=== PATIENT | male | born 1970 | race Caucasian/White ===

== ENCOUNTER 2019-11-10 16:04 | Inpatient (IN) | payer MEDICAID ==
[~2019-11-10] VITALS: Ht 170.2 cm; Wt 119.7 kg
[2019-11-10 16:06] VITALS: Ht 170.2 cm; Wt 119.7 kg
[2019-11-10 16:56] LABS: BASOPHIL % 0.3 % (0-2)
[2019-11-10 16:57] LABS: PLATELET COUNT 118 x10^3mcL (130-400); RED CELL DISTRIBUTION WIDTH 14.7 % (11.5-14.5)
[2019-11-10 17:15] LABS: ALBUMIN 3.5 g/dL (3.4-5.0); ALKALINE PHOSPHATASE 108 U/L (46-116); AST/SGOT 202 U/L (15-37); CALCIUM 9.7 mg/dL (8.5-10.1); CARBON DIOXIDE 21.4 mmol/L (21-32); CHLORIDE SERUM 91 mmol/L (98-107); CREATININE SERUM 2.5 mg/dL (0.7-1.3); GFR1 29 mL/min; GLUCOSE SERUM 120 mg/dL (74-106); MAGNESIUM 2.5 mg/dL (1.8-2.4); SODIUM SERUM 134 mmol/L (136-145); TOTAL PROTEIN, SERUM 7.4 g/dL (6.4-8.2)
[2019-11-10 18:11] LABS: ALT/SGPT 182 U/L (16-63)
[2019-11-10 19:24] LABS: CALCIUM 8.9 mg/dL (8.5-10.1); CARBON DIOXIDE 30.1 mmol/L (21-32); CREATININE SERUM 1.9 mg/dL (0.7-1.3)
[2019-11-10 19:29] LABS: POTASSIUM SERUM 2.8 mmol/L (3.5-5.1)
[2019-11-10 20:18] LABS: UA SPECIFIC GRAVITY >=1.030 (1.005-1.035); microscopic required? YES; urine erythrocyte 3+ (NEGATIVE)
[2019-11-11] VITALS (7 sets, daily range): BP systolic 115–157; BP diastolic 85–107
[2019-11-11 07:18] LABS: BASOPHIL % 0.4 % (0-2); RED CELL DISTRIBUTION WIDTH 14.5 % (11.5-14.5)
[2019-11-11 07:35] LABS: PLATELET COUNT 96 x10^3mcL (130-400)
[2019-11-11 07:53] LABS: CALCIUM 8.2 mg/dL (8.5-10.1); CARBON DIOXIDE 31.8 mmol/L (21-32); CREATININE SERUM 1.4 mg/dL (0.7-1.3); MAGNESIUM 2.4 mg/dL (1.8-2.4); PHOSPHOROUS 2.6 mg/dL (2.5-4.9)
[2019-11-11 07:55] LABS: POTASSIUM SERUM 2.8 mmol/L (3.5-5.1)
[2019-11-11 10:02] LABS: LIPASE 1161 IU/L (73-393)
[2019-11-11 10:05] LABS: AMYLASE 152 U/L (25-115)
[2019-11-12 05:33] VITALS: BP 127/92
[2019-11-12 07:02] LABS: BASOPHIL % 1.1 % (0-2); PLATELET COUNT 134 x10^3mcL (130-400)
[2019-11-12 07:34] LABS: RED CELL DISTRIBUTION WIDTH 14.8 % (11.5-14.5)
[2019-11-12 07:37] LABS: CALCIUM 7.9 mg/dL (8.5-10.1); CARBON DIOXIDE 27.8 mmol/L (21-32); CHLORIDE SERUM 95 mmol/L (98-107); GFR1 > 60 mL/min; GLUCOSE SERUM 83 mg/dL (74-106); MAGNESIUM 1.8 mg/dL (1.8-2.4); PHOSPHOROUS 2.8 mg/dL (2.5-4.9); SODIUM SERUM 131 mmol/L (136-145)
[2019-11-12 07:40] LABS: POTASSIUM SERUM 2.9 mmol/L (3.5-5.1)
[2019-11-12 08:54] VITALS: BP 143/90
[2019-11-12 10:47] LABS: BILIRUBIN DIRECT 1.24 mg/dL (0.0-0.2); BILIRUBIN TOTAL 1.8 mg/dL (0.20-1.00)
[2019-11-12 11:07] LABS: ALBUMIN 2.6 g/dL (3.4-5.0); TOTAL PROTEIN, SERUM 5.3 g/dL (6.4-8.2)
[2019-11-12 12:08] VITALS: BP 134/91
[2019-11-12 16:44] VITALS: BP 122/90
[2019-11-12 20:56] VITALS: BP 130/92
[2019-11-13 05:51] VITALS: BP 126/90
[2019-11-13 06:23] LABS: PLATELET COUNT 186 x10^3mcL (130-400); RED CELL DISTRIBUTION WIDTH 14.5 % (11.5-14.5)
[2019-11-13 06:40] LABS: CALCIUM 8.2 mg/dL (8.5-10.1); CARBON DIOXIDE 26.8 mmol/L (21-32); CHLORIDE SERUM 97 mmol/L (98-107); GFR1 > 60 mL/min; GLUCOSE SERUM 89 mg/dL (74-106); MAGNESIUM 1.7 mg/dL (1.8-2.4); PHOSPHOROUS 2.9 mg/dL (2.5-4.9); POTASSIUM SERUM 3.2 mmol/L (3.5-5.1); SODIUM SERUM 131 mmol/L (136-145)
[2019-11-13 08:04] VITALS: BP 117/92
[2019-11-13 11:57] VITALS: BP 129/83
[2019-11-13 12:21] LABS: ATYPICAL LYMPH 3 %; BAND NEUTROPHIL 5 % (0-10); SEGMENTED NEUTROPHILS 49 % (37-75)
[2019-11-13 12:22] LABS: METAMYELOCTE 1 % (0-2); MONOCYTE 21 % (0-7); MYELOCYTE 1 % (0-2); PLATELET MORPHOLOGY LARGE PLATELET SEEN; rbc morphology (normal/abnorm) ABNORMAL (NORMAL)
[2019-11-13 16:41] VITALS: BP 115/86
[2019-11-14 06:21] VITALS: BP 123/94
[2019-11-14 08:48] VITALS: BP 118/80
[2019-11-14 12:01] VITALS: BP 132/93
[2019-11-14 12:53] LABS: CALCIUM 8.5 mg/dL (8.5-10.1); CHLORIDE SERUM 100 mmol/L (98-107); CREATININE SERUM 1.1 mg/dL (0.7-1.3); GFR1 > 60 mL/min; GLUCOSE SERUM 94 mg/dL (74-106); POTASSIUM SERUM 4.1 mmol/L (3.5-5.1); SODIUM SERUM 133 mmol/L (136-145)
[2019-11-14 16:11] VITALS: BP 126/73
[2019-11-14 21:15] VITALS: BP 124/80
[2019-11-15 05:44] VITALS: BP 115/79
[2019-11-15 07:48] VITALS: BP 116/81
[2019-11-15 12:03] VITALS: BP 120/73
[2019-11-15 15:52] VITALS: BP 120/73
[2019-11-15 16:09] VITALS: BP 122/74
== END 2019-11-15 19:22 | disposition home or self-care (01) | DRG 775 ==
LOC: EDBD 16:04 → ED 16:04 → IC 20:05 → DU 20:05 → IC 23:27 → DU 11-11 18:20
PROVIDERS: Emergency Medicine; Internal Medicine; Radiology Diagnostic Radiology; ADMIT Student in an Organized Health Care Education/Training Program; ATTEND Student in an Organized Health Care Education/Training Program
DX: F10.239 Alcohol dependence with withdrawal, unspecified (principal); N17.0 Acute kidney failure with tubular necrosis; G92 Toxic encephalopathy; T51.0X4A Toxic effect of ethanol, undetermined, initial encounter; Y90.0 Blood alcohol level of less than 20 mg/100 ml; N39.0 Urinary tract infection, site not specified; E87.1 Hypo-osmolality and hyponatremia; E86.0 Dehydration; E87.6 Hypokalemia; Z20.828 Contact with and (suspected) exposure to other viral communicable diseases; D64.9 Anemia, unspecified; E83.51 Hypocalcemia
CPT/HCPCS: 97116-GP; 97530-GP; G0378; G0480; J0696; J2060; J3480; J3490; J7030; Q0092